=== PATIENT | female | born 1955 | race Caucasian/White ===

== ENCOUNTER 2025-03-02 01:21 | Emergency (ER) | payer MEDICARE ==
[2025-03-02] MEDS ORDERED: Iopamidol 370 76% 100 ML VIAL ONE (11:05)
== END 2025-03-02 04:39 | disposition short-term general hospital (02) ==
LOC: CSHERS 01:21
DX: I71.60 Thoracoabdominal aortic aneurysm, without rupture, unspecified (principal); I31.2 Hemopericardium, not elsewhere classified; J44.9 Chronic obstructive pulmonary disease, unspecified
CPT/HCPCS: 71275; 74174; 93005; Q9967; 93010; 96374; 96375; 96376